=== PATIENT | female | born 1960 | race Two or more races ===

== ENCOUNTER 2024-11-01 16:09 | Emergency (ER) | payer MEDICAID, SELFPAY ==
[2024-11-01 16:24] VITALS: BP 128/63; PULSE 100; RESP 18; TEMP 36.9; O2SAT 99; BMI 39.0
[2024-11-01] MEDS: LORazepam 2 MG/ML VIAL 1 MG IM (16:35)
[2024-11-01] MEDS: ONDANSETRON ODT 4 MG TABRAP PO (16:36)
--- NOTE | 2024-11-01 16:57 | EDNOTE_ITS ---
ED General RME/HPI General Chief complaint: General Adult/Misc Complain Stated complaint: SHE CANNOT FEEL HER BODY, ENTIRE BODY IS NUMB Time Seen by Provider: 11/01/24 16:14 Arrival date/time: 11/01/24 16:09 64-year-old female presents to the emergency department today currently patient is having an anxiety attack patient reports that she has a daughter who is very sick and she was given bad news. She reports that she was told that her daughter has 1 week to live Limitations: no limitations Related Data Previous Rx's ?Medication ?Instructions ?Recorded Cyclobenzaprine * (FLEXERIL *) 10 mg PO TID PRN spasm #10 tabs 03/23/16 Hydrocodone/Acetaminophen * (NORCO 1 tab PO BID PRN PA IN #10 tabs 03/23/16 5/325 *) alprazolam 0.25 mg tablet (Xanax) 0.25 mg PO QDAY PRN anxiety #7 tabs 11/01/24 Allergies Allergy/AdvReac Type Severity Reaction Status Date / Time NKA* Allergy Uncoded 03/22/16 22:07 Review of Systems Review of Systems Systems Reviewed: All systems reviewed, normal except as documented Constitutional Constitutional: Reports system reviewed and no additional complaints, except as documented, Denies fever(s) and Denies headache(s) Eyes Eyes: Reports system reviewed and no additional complaints, except as documented and Denies blurry vision ENT Ears, Nose, Mouth, and Throat: Reports system reviewed and no additional complaints, except as documented, Denies headache(s), Denies nasal congestion and Denies nasal discharge Cardiovascular Cardiovascular: Reports system reviewed and no additional complaints, except as documented, Denies chest pain and Denies dyspnea Respiratory Respiratory: Reports system reviewed and no additional complaints, except as documented, Denies chest congestion, Denies cough and Denies dyspnea Gastrointestinal Gastrointestinal: Reports system reviewed and no additional complaints, except as documented and Denies abdominal pain Integumentary/Breasts Skin/Breast: Reports system reviewed and no additional complaints, except as documented and Denies rash Neurologic Neurologic: Reports system reviewed and no additional complaints, except as documented, Reports as per HPI and Denies headache(s) Psychiatric Psychiatric: Reports system reviewed and no additional complaints, except as documented and Reports anxiety Past Medical History Social History SMOKING STATUS: Never smoker ED Exam General Limitations: Present no limitations General appearance: Present alert and in no apparent distress Head Head exam: Present atraumatic, normocephalic and normal inspection Eye Eye exam: Present normal appearance, PERRL and EOMI ENT ENT exam: Present normal exam, normal oropharynx and mucous membranes moist Neck Neck exam: Present normal inspection, full ROM and trachea midline Chest Chest inspection: Present normal inspection and symmetric chest wall rise Respiratory Respiratory exam: Present normal lung sounds bilaterally; Absent respiratory distress, wheezes, stridor, accessory muscle use or prolonged expiratory phase Cardiovascular Cardiovascular exam: Present regular rate, normal rhythm and normal heart sounds Abdominal Exam Abdominal exam: Present soft and normal bowel sounds; Absent distention, tenderness, guarding, rebound or rigidity Extremities Exam Extremities exam: Present normal inspection and full ROM Back Exam Back exam: Present normal inspection and full ROM Neurological Exam Neurological exam: Present alert, oriented X3, CN II-XII intact, normal gait and reflexes normal; Absent motor sensory deficit Psychiatric Psychiatric exam: Present normal affect, normal mood, agitated and anxious; Absent homicidal ideation or suicidal ideation Skin Skin exam: Present warm, dry, intact and normal color Course Quality Measures none Orders Category Date Time Status LORazepam [Ativan Inj] Med 11/01/24 16:21 Discontinued 1 mg IM X1 ONE Ondansetron Odt [Zofran Odt] Med 11/01/24 16:29 Discontinued 4 mg PO X1 ONE Vital Signs Vital signs: Vital Signs Temperature 98.5 F 11/01/24 16:24 Pulse Rate 100 11/01/24 16:24 Respiratory Rate 18 11/01/24 16:24 Blood Pressure 128/63 11/01/24 16:24 Pulse Oximetry (%) 99 11/01/24 16:24 Oxygen Delivery Method Room Air 11/01/24 16:24 O2 saturation 99% r/a wnl [facility] Patient data External records reviewed:: [facility] previous records Clinical information provided by:: patient Social determinants that could affect healthcare access:: none Patient has the following chronic illnesses:: See history How is presenting disease/condition affected by chronic disease/condition?: uneffected by Evaluation data The following diagnostics were reviewed and interpreted by me:: other (specify) (N/A) Lab and/or radiology exams considered but not ordered:: N/A Interpretation Summary: N/A Medications Medications considered but not ordered:: Given Medication administrations:: Medication Administration History Discontinued Medications Lorazepam (Lorazepam 2 Mg/Ml Vial) 1 mg IM X1 ONE Stop: 11/01/24 16:22 Last Admin: 11/01/24 16:35 Dose: 1 mg Documented By: EO Ondansetron HCl (Ondansetron Odt 4 Mg Tabrap) 4 mg PO X1 ONE; Protocol Stop: 11/01/24 16:30 Last Admin: 11/01/24 16:36 Dose: 4 mg Documented By: EO Given Consultations Consultation(s) initiated? (list below): No Diagnosis Differential Diagnosis ED Complaint MDM: Anxiety, stress reaction, grief reaction Most likely diagnosis given after review of the tests above:: Grief reaction Admission Indicated Admission indicated?: not indicated Explain why admission is indicated or not indicated:: Agree. Admission Request Was there a request for admission?: No Disposition Plan Disposition Plan: Discharge Discharge Attestation Discharge Attestation: The patient and all family members were given an opportunity to ask questions and understood the discharge instructions. Discharge instructions specifically effects, indications for sooner follow up or return to the emergency department, and the expected course of current diagnosis. Patient condition: Stable Medical Decision Making MDM Narrative MDM Narrative: 64-year-old female presents to the emergency department today currently patient is having an anxiety attack patient reports that she has a daughter who is very sick and she was given bad news. She reports that she was told that her daughter has 1 week to live Patient reports no chest pain or shortness of breath On exam patient appears to be very anxious and sad I had a long conversation with her patient was given a dose of Ativan here and discharged with Xanax Patient reports after receiving the medication she feels better Patient discharged home in no distress to follow-up with primary care doctor in the next 24 to 48 hours and for any worsening symptoms to return to the ER immediately Differential Diagnosis Differential Diagnosis: Anxiety, stress reaction, grief reaction Medical Records Medical records reviewed: Yes I reviewed the patient's medical records. Discharge Plan Plan Patient Disposition: HOME (Self Care) Disposition Comment: Stable Prescriptions/Referrals Prescriptions/Med Rec: New alprazolam [Xanax] 0.25 mg tablet 0.25 mg PO QDAY PRN (Reason: anxiety) Qty: 7 0RF No Action Cyclobenzaprine * (FLEXERIL *) 10 MG tablet 10 mg PO TID PRN (Reason: spasm) Qty: 10 0RF Hydrocodone/Acetaminophen * (NORCO 5/325 *) 1 TAB tablet 1 tab PO BID PRN (Reason: PAIN) Qty: 10 0RF Problem List Clinical Impression: Grief reaction Patient/Caregiver Discharge Instructions Education Materials: ED Grief Reaction Additional Instructions: Please follow up with your primary care doctor in the next 24-48hrs for any worsening symptoms return here immediately Im very sorry for the situation you are going through and I wish you the best Print Language: Indonesian Stand Alone Forms: [facility] Award Info., Patient Portal Info Letter PA/FRONT DESK PERSON Supervising Physician PA/FRONT DESK PERSON Supervising Physician: Dr. Dobbins
== END 2024-11-01 19:12 | disposition home or self-care (01) ==
LOC: SERX 17:17
PROVIDERS: Emergency Provider Emergency Medicine
DX: F43.22 Adjustment disorder with anxiety (principal)
CPT/HCPCS: 96372; 99283; J2060; Q0162